=== PATIENT | female | born 1990 | race Two or more races ===

== ENCOUNTER 2025-04-09 20:56 | Emergency (ER) | payer BC, OTHER ==
[~2025-04-09] VITALS: Ht 154.9 cm; Wt 70.3 kg
[2025-04-10] MEDS ORDERED: CEPH250C PO (00:11)
[2025-04-10] MEDS ORDERED: ERY05OO OP (00:11)
--- NOTE | 2025-04-10 00:12 | ED.PDOC ---
Eye-HPI HPI Comments 34-year-old female who presents with chief complaint of left eye lid swelling and redness, with the associated conjunctival redness. Patient reports on ongoing symptoms after initially noticing on April 06 2025. No endorsed recent injuries. Temporary relief with warm compression. Denies having any vision changes, pain, or further associated symptoms. REVIEW OF SYSTEMS: General: No fever, no chills, HEENT: Left eyelid swelling and redness. Left conjunctival redness. No neck pain, no blurred vision Cardiac: No chest pain. No palpitations. Lungs: No shortness of breath, GI: No abdominal pain, no vomiting Musculoskeletal: No joint pain , no back pain Skin: No rash, no wound Neuro: No headache, no dizziness, no syncope PHYSICAL EXAM: General: Awake, alert and oriented. No acute distress. Skin: Skin in warm, dry and intact without rashes or lesions. HEENT: The head is normocephalic and atraumatic. Left eye is erythematous and edematous, with multiple pustules. Mild left conjunctival injection. EOM. PERRLA. Neck: Normal range of motion. No JVD. Cardiac: Regular rate Respiratory: No signs of respiratory distress. No Stridor. Extremities: Upper and lower extremities are atraumatic in appearance without deformity. Neurological: The patient is awake, alert and oriented to person, place, and time with normal speech. Speech is clear. There is no facial asymmetry. Psychiatric: Appropriate mood and affect. Good judgement and insight. Chief Complaint: Eye Problem Time Seen by MD: 23:34 Allergies: Coded Allergies: Pork (Porcine) Protein (Verified Allergy, Unknown, 04/09/25) Home Meds Active Scripts Erythromycin (Erythromycin) 5 Mg/Gm Oin, 1 MG OP TID for 5 Days, #15 OIN Prov:PAPI SALAZAR MD 04/10/25 Cephalexin (KEFLEX CAPSULE) 250 Mg Cp, 500 MG PO BID for 7 Days, #14 CAP Prov:PAPI SALAZAR MD 04/10/25 Information Source: Patient Mode of Arrival: Ambulatory Was a procedure done? Was a procedure done?: No EENT DIFF Eye: Conjunctivitis, Allergic, Bacterial, Viral, Foreign Body-Conjunctiva, Foreign Body-Corneal, Foreign Body-Intraocular, Foreign Body-Lid, Orbital Cellulits, Periorbital Cellulits Ear: N/A Nose: N/A Mouth: N/A Sore Throat: N/A X-Ray, Labs, Meds, VS Vital Signs Date Time Temp Pulse Resp B/P (MAP) Pulse Ox O2 Delivery O2 Flow Rate FiO2 04/09/25 20:57 98.5 94 20 150/90 99 98.5 Time of 1ST Reevaluation: 00:04 Reevaluation 1ST: Unchanged Patient Education/Counseling: Need For Follow Up Family Education/Counseling: No Family Present SEPSIS Sepsis Screen Date sepsis recognized/suspect: Apr 09, 2025 Time Sepsis recognized/suspect: 2056 Recent Procedure: No On Antibiotic Therapy: No Respiratory Rate >20: No Heart Rate >90: No Temp<36 C (96.8 F) or >38.3 C: No SBP <90 or MAP <65 mmHG: No New Acute Mental Status Change: No Is the patient on CPAP, BIPAP,: No Vital Signs Date Time Temp Pulse Resp B/P (MAP) Pulse Ox O2 Delivery O2 Flow Rate FiO2 04/09/25 20:57 98.5 94 20 150/90 99 98.5 Departure 1 Departure Time of Disposition: 00:11 Impression: Primary Impression: Conjunctivitis Disposition: HOME / SELF CARE / HOMELESS Condition: Stable Additional Instructions: ED DISCHARGE INSTRUCTIONS Instructions: Please read all instructions provided in this packet carefully. Although you have been discharged from the Emergency Department {ED}, this does not mean that you have a "clean bill of health". []No definitive diagnosis for your symptoms has been made today. It is possible that you are in the process of developing a serious illness. This is why you must return to the ED without fail if any new or worsening symptoms (especially if your symptoms include chest pain, trouble breathing, abdominal pain, fever, headache, confusion, trouble seeing, or trouble walking) It is also very important that you see a primary care provider (PCP) within the next 3 days to follow up. If you are unable to get an appointment, return to the ED three days for re- evaluation. e-Prescriptions Erythromycin (Erythromycin) 5 Mg/Gm Oin 1 MG OP TID for 5 Days, #15 OIN Prov: PAPI SALAZAR MD 04/10/25 Cephalexin (KEFLEX CAPSULE) 250 Mg Cp 500 MG PO BID for 7 Days, #14 CAP Prov: PAPI SALAZAR MD 04/10/25 Critical Care Note Critical Care Time?: No Stability Stability form required: No Heart Score Heart Score: Heart Score Response (Comments) Value History N/A 0 EKG N/A 0 Age N/A 0 Risk Factors N/A 0 Troponin N/A 0 Total 0 I personally scribed for PAPI SALAZAR MD ([email or web address]) on 04/10/25 at 00:38. Electronically submitted by Brady Miller ([email or web address]). PAPI SALAZAR MD Apr 10, 2025 00:12
[2025-04-10] MEDS: CEPHALEXIN 250 MG CAP PO ONE (00:15)
[2025-04-10 00:40] VITALS: BP 128/83; PULSE 99; RESP 16; TEMP 97.8; O2SAT 96
== END 2025-04-10 00:45 | disposition home or self-care (01) ==
LOC: ER 20:56
DX: H10.9 Unspecified conjunctivitis (principal); Z79.899 Other long term (current) drug therapy